=== PATIENT | male | born 2000 | race Caucasian/White ===

== ENCOUNTER 2020-07-23 08:27 | Day surgery (SDC) | payer BC ==
[~2020-07-23 08:27] MED LIST: Lactated Ringers 1,000 ML IV SCH; Lidocaine 1%/Sod Bicarbonate in NS 8.4% 1 ML Syringe IDERM PRN; Sodium Chloride 0.9% 10 ML Syringe FLUSH PRN
[2020-07-23] MEDS ORDERED: Ropivacaine 0.5% 5 MG/ML 30 ML SDV ONE (09:03)
[2020-07-23] MEDS ORDERED: EPINEPHrine 1 MG/ML SDV ONE (09:03)
[2020-07-23] MEDS ORDERED: Lidocaine 1% 4 ML ONE (09:05)
[2020-07-23] MEDS ORDERED: Midazolam 1 MG/ML 2 ML SDV ONE ×2 (09:05→09:33)
[2020-07-23] MEDS ORDERED: fentaNYL 100 MCG/2 ML SDV ONE (09:05)
[2020-07-23] MEDS ORDERED: Dexamethasone 4 MG/ML 5 ML MDV ONE (09:05)
[2020-07-23] MEDS ORDERED: Propofol 200 MG/20 ML SDV ONE (09:05)
[2020-07-23] MEDS ORDERED: Ondansetron 4 MG/2 ML SDV ONE (09:05)
[2020-07-23] MEDS ORDERED: Ketamine 500 mg/10 ML MDV ONE (09:05)
[2020-07-23] MEDS ORDERED: Bupivacaine 0.75% 30 ML SDV ONE (09:22)
[2020-07-23] MEDS ORDERED: Bupivacaine 0.25% 10 ML SDV ONE (09:24)
[2020-07-23] MEDS ORDERED: EPINEPHrine 1 MG/ML 30 ML MDV IRR SCH (09:45)
[2020-07-23] MEDS ORDERED: ceFAZolin 1 GM Vial ONE ×2 (09:56→11:57)
[2020-07-23] MEDS ORDERED: HYDROmorphone 0.5 MG/0.5 ML Syringe IVPUSH PRN (10:41)
[2020-07-23] MEDS ORDERED: fentaNYL 100 MCG/2 ML SDV IVPUSH PRN (10:41)
[2020-07-23] MEDS ORDERED: Ondansetron 4 MG/2 ML SDV IVPUSH PRN (10:41)
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
--- NOTE | 2020-07-23 11:16 | PCM.POSTAN ---
POST ANESTHESIA ASSESSMENT - MENTAL STATUS Mental Status: Oriented, Other (Drowsy) - VITAL SIGNS Vital Signs: Last Vital Signs Temp 36.4 C 07/23/20 08:30 Pulse 65 07/23/20 08:30 Resp 16 07/23/20 08:30 BP 123/70 07/23/20 08:30 Pulse Ox 98 07/23/20 08:30 1108 97F 124/55 77 15 99% - RESPIRATORY Respiratory Status: Respiratory Rate WNL, Airway Patent, O2 Saturation Stable, Supplemental Oxygen - CARDIOVASCULAR CV Status: Pulse Rate WNL, Blood Pressure Stable - GASTROINTESTINAL GI Status: No Symptoms - PAIN Pain Score: 0 - POST OP HYDRATION Hydration Status: Adequate & Stable
--- NOTE | 2020-07-23 11:38 | PCM.SN.2 ---
- Free Text/Narrative Note: Left selective femoral nerve block at the adductor canal for post-procedure pain control under US guidance requested by Dr. Arreola. Date: 07/23/2020 Time Out: 1121 Start: 1125 End: 1127 Chart reviewed. Consent signed. Questions answered. Appropriate monitors applied. Time out performed. Left mid-shaft femur identified with ultrasound, scanning medially of femur, the femoral artery in the adductor canal visualized, and the femoral nerve located laterally to the artery. The skin was prepped lateral to the ultrasound probe with chlorahexadine times two. The 21ga 4 insulated block needle was inserted under direct ultrasound guidance into the adductor canal. 25mL of 0.5% ropivacaine with 1:200,000 epinephrine was injected circumferentially around the nerve with intermittent negative aspiration noted. Patient tolerated the procedure well. Sterile technique noted along with sterile gloves, mask, and sterile probe cover. See picture on progress note and vital signs on nurses notes. Block completed in PACU. Brandon Marte CRNA
--- NOTE | 2020-07-23 12:21 | CR ---
Fluoroscopy: 2 views of the left knee were obtained. Comparison: No previous study. Study shows an anchor compatible with ACL repair. Fluoroscopy time is given as 4.3 seconds. Impression: 1. Procedural study as noted above. Diagnostic code #2
--- NOTE | 2020-07-23 14:19 | PCM48HPAN ---
Post Anesthesia Note - EVALUATION WITHIN 48HRS OF ANESTHETIC Vital Signs in Normal Range: Yes Patient Participated in Evaluation: Yes Respiratory Function Stable: Yes Airway Patent: Yes Cardiovascular Function Stable: Yes Hydration Status Stable: Yes Pain Control Satisfactory: Yes Nausea and Vomiting Control Satisfactory: Yes Mental Status Recovered: Yes Vital Signs: Last Vital Signs Temp 36.5 C 07/23/20 12:10 Pulse 65 07/23/20 12:10 Resp 16 07/23/20 12:10 BP 119/56 L 07/23/20 12:10 Pulse Ox 98 07/23/20 12:10 - COMMENTS/OBSERVATIONS Free Text/Narrative:: Spinal block wearing down good movement noted, numbness still remaining in his toes.
[2020-07-23] MEDS ORDERED: Acetaminophen/HYDROcodone 325-5 MG Tab PO PRN (15:24)
[2020-07-23] MEDS ORDERED: Cyclobenzaprine 10 MG Tab PO PRN (15:30)
--- NOTE | 2020-08-12 10:51 | PCM.OPNOTE ---
- General Post-Op/Procedure Note Date of Surgery/Procedure: 07/23/20 Operative Procedure(s): left knee video arthroscopy with ACL anterior tibial tendon allograft reconstruction Pre Op Diagnosis: left knee ACL deficiency Post-Op Diagnosis: Same Anesthesia Technique: General ET Tube, Regional Block Primary Surgeon: Adria Arreola Anesthesia Provider: Bela Marte Web Designer Developer: Ana Spear Web Designer Developer: Flaquita Gomez EBL in mLs: 5 Complications: None Condition: Good
--- NOTE | 2020-08-12 11:19 | OR ---
DATE OF OPERATION: 07/23/2020 SURGEON: Adria Arreola MD OPERATION PERFORMED: Left knee video arthroscopy with anterior cruciate ligament, anterior tibial tendon allograft reconstruction. PREOPERATIVE DIAGNOSIS: Left knee anterior cruciate ligament deficiency. POSTOPERATIVE DIAGNOSIS: Left knee anterior cruciate ligament deficiency. ANESTHESIA: General endotracheal intubation with regional block. ANESTHESIA PROVIDER: Ami De Paz ASSISTANTS: Ana Spear PA-C and Flaquita Gomez LPN. ESTIMATED BLOOD LOSS: 5 mL. COMPLICATIONS: None. CONDITION: Stable. DESCRIPTION OF PROCEDURE: The patient was identified in the preoperative holding area. Proper site was marked and identified by surgeon. The patient was taken back to the operating theater where after adequate anesthesia, the patient's left lower extremity had a nonsterile tourniquet applied and was placed in a C-clamp phillip. Foot of the bed was then lowered. Right lower extremity was then placed in a well leg phillip. Left lower extremity was then sterilely prepped and draped in the usual sterile fashion. OR time-out was performed. The patient received 2 g IV Ancef. Left lower extremity was exsanguinated. Tourniquet was insufflated to 250 mmHg. Standard anterolateral portal was made just by the patellar tendon. Scope trocar was introduced. The patient had a minor amount of synovitis as well as minor overgrowth of the fat pad, but otherwise no chondromalacia was noted of the patellofemoral compartment. Attention was turned to the medial compartment. Anteromedial portal was created with the use of a spinal needle as close to the patellar tendon as possible. The patient had no medial meniscus tear. No signs of chondromalacia. The ACL was completely torn off the femoral attachment. Lateral compartment showed no lateral meniscus tear or chondromalacia. At this time, the graft was opened and it was prepared on the back table to the length of 75 mm by Ana Spear PA-C, and Flaquita Gomez LPN. While this was completed, I resected the old fibers of the ACL. The guide for the tibial tunnel was then placed at 55 degrees. Guide pin was then placed after incision was made on the tibia. A 9 mm reamer was then utilized up into the notch. The tunnel was found to be in an adequate position. Attention was turned to the flip cutter guide. This was placed on the posterior aspect of the lateral femoral condyle with just a small rim posteriorly. The 9.5 flip cutter was then placed and a 25 mm tunnel was drilled. At this time, the graft was prepared. All loose bony fragments were irrigated out of the knee. The graft was placed up through the tibial tunnel into the knee. The Endobutton was flipped on the femoral side. C-arm fluoroscopy was utilized to make sure it was flipped in proper position with no soft tissue interference and there was not. At this time, the guide was placed up into the femoral tunnel. The patient's knee was brought through a cycle range of motion. There was no impingement in the notch. The graft was found to be in adequate position. I drilled for a 4.5 screw but the washer was placed in the tibia. A Cecy 4.5 cortical screw was placed with the washer. The suture limbs on the tibial side were then tied over the post and then the screw was tightened. The graft was found to be intact. The patient had a negative anterior drawer. Full range of motion. Excess saline was drained from the knee. 2-0 Vicryl was used for subcutaneous closure. Monocryl was used for closure of the skin. The patient had a sterile soft dressing and a hinged knee brace applied and was sent to PACU in stable condition. DOMO /[id number] NICK
== END 2020-07-23 18:20 | disposition home or self-care (01) ==
LOC: JD.SDS 08:27 → JD.MS 15:50 → JD.SDS 18:20
PROVIDERS: ATTEND Orthopaedic Surgery
DX: S83.512A Sprain of anterior cruciate ligament of left knee, initial encounter (principal); R07.9 Chest pain, unspecified; G89.18 Other acute postprocedural pain; Z79.899 Other long term (current) drug therapy
CPT/HCPCS: 01400; 64450; 76000; 76000-26; A9270-GY; C1713; C1762; J0171; J0690; J1100; J2001; J2250; J2405; J2704; J2795; J3010; J3490; J7120